=== PATIENT | male | born 1945 | race Caucasian/White ===

== ENCOUNTER 2023-06-29 09:53 | Emergency (ER) | payer OTHER ==
[~2023-06-29] VITALS: Ht 172.7 cm; Wt 73.4 kg
[2023-06-29] VITALS (9 sets, daily range): BP systolic 126–162; BP diastolic 66–84
[2023-06-29 11:18] LABS: BASO% 0.3 % (0-3); EOS% 0.7 % (0-8); HEMATOCRIT 49.9 % (39.0-50.0); HEMOGLOBIN 17.6 g/dl (14.0-18.0); IMMATURE GRANULOCYTES 0.8 % (0.0-5.0); LYMPH% 13.9 % (15-41); MEAN CELL VOLUME 92.4 fL CALC (80.0-100.0); MEAN CORPUSCULAR HGB 32.6 pG CALC (26.0-32.0); MEAN CORPUSCULAR HGB CONC 35.3 g/dL CAL (32.0-36.0); MONO% 7.6 % (2-13); NEUT# 5.52 thou/uL (1.82-7.42); NEUT% 76.7 % (42-76); RED BLOOD COUNT 5.4 mill/uL (4.70-6.10); RED CELL DISTRI WIDTH 11.6 % (11.5-15.5)
[2023-06-29 11:30] LABS: D-DIMER 0.23 mg/L (0.19-0.60)
[2023-06-29 11:31] LABS: ALBUMIN 4.1 g/dL (3.2-5.0); ALKALINE PHOSPHATASE 71 u/l (38-126); BUN 15 mg/dL (8-23); BUN/CREATININE RATIO 18 (12-20 (CALC)); CARBON DIOXIDE 23 mmol/l (22-30); CHLORIDE 102 mmol/l (95-108); CREATININE 0.8 mg/dL (0.7-1.3); GFR FOR AFR.AMER. > 60 ML/MIN (>=60 (CALC)); GFR OTHER RACES > 60 ML/MIN (>=60 (CALC)); POTASSIUM 4.4 mmol/l (3.5-5.1); SGOT/AST 37 u/l (19-48); TOTAL PROTEIN 6.3 g/dL (6.3-8.2)
[2023-06-29 11:32] LABS: INTERNATIONAL NORMALIZED RATIO 1.1 RATIO (0.7-1.3); PROTHROMBIN TIME 10.4 SECONDS (9.0-12.5)
[2023-06-29 11:44] LABS: ANION GAP 13 (6-22 (CALC)); SODIUM 134 mmol/l (137-146)
[2023-06-29] MEDS ORDERED: ZOFRAN4 MG/TAB PO (12:02)
[2023-06-29] MEDS ORDERED: MECLIZINE 2525 MG PO (12:02)
[2023-06-29 13:20] LABS: URINE BILIRUBIN - DIPSTICK Negative (NEGATIVE); URINE BLOOD DIPSTICK Negative (NEGATIVE); URINE COLOR Yellow; URINE GLUCOSE - DIPSTICK >=1000 mg/dL (NEGATIVE); URINE KETONE 40 mg/dL (NEGATIVE); URINE LEUK ESTERASE Negative (NEGATIVE); URINE NITRITE - DIPSTICK Negative (Negative); URINE PROTEIN - DIPSTICK Negative (NEG-TRACE); URINE SPECIFIC GRAVITY 1.015; URINE UROBILINOGEN - DIPSTICK 0.2 E.U./dL (0.2)
== END 2023-06-29 14:19 | disposition home or self-care (01) | DRG 195 ==
LOC: ED 09:53
PROVIDERS: Family Medicine
DX: J10.1 Influenza due to other identified influenza virus with other respiratory manifestations (principal); I10 Essential (primary) hypertension; E11.9 Type 2 diabetes mellitus without complications; F17.200 Nicotine dependence, unspecified, uncomplicated; Z95.1 Presence of aortocoronary bypass graft; Z85.46 Personal history of malignant neoplasm of prostate; Z20.822 Contact with and (suspected) exposure to COVID-19

== ENCOUNTER 2024-07-07 09:26 | Emergency (ER) | payer MEDICARE ==
[~2024-07-07] VITALS: Ht 172.7 cm; Wt 72.5 kg
[~2024-07-07 09:26] MED LIST: MECLIZINE 2525 MG PO; ZOFRAN4 MG/TAB PO
[2024-07-07 09:33] VITALS: BP 135/81
[2024-07-07 09:45] VITALS: BP 136/74
[2024-07-07 10:02] LABS: BASO% 0.7 % (0-3); EOS% 2.9 % (0-8); HEMATOCRIT 44.9 % (39.0-50.0); IMMATURE GRANULOCYTES 0.2 % (0.0-5.0); LYMPH% 20.2 % (15-41); MEAN CELL VOLUME 91.6 fL CALC (80.0-100.0); MEAN CORPUSCULAR HGB 31.4 pG CALC (26.0-32.0); MEAN CORPUSCULAR HGB CONC 34.3 g/dL CAL (32.0-36.0); MONO% 11.2 % (2-13); NEUT# 5.49 thou/uL (1.82-7.42); NEUT% 64.8 % (42-76); RED BLOOD COUNT 4.9 mill/uL (4.70-6.10); RED CELL DISTRI WIDTH 12.2 % (11.5-15.5)
[2024-07-07 10:03] LABS: HEMOGLOBIN 15.4 g/dl (14.0-18.0)
[2024-07-07 10:23] LABS: ALBUMIN 4.1 g/dL (3.2-5.0); ALKALINE PHOSPHATASE 61 u/l (38-126); ANION GAP 8 (6-22 (CALC)); BILIRUBIN, TOTAL 1.2 mg/dL (0.2-1.3); BUN 16 mg/dL (8-23); BUN/CREATININE RATIO 20 (12-20 (CALC)); CARBON DIOXIDE 27 mmol/l (22-30); CHLORIDE 103 mmol/l (95-108); CREATININE 0.8 mg/dL (0.7-1.3); ESTIMATED GFR 91 ML/MIN (>=90 (CALC)); POTASSIUM 4.1 mmol/l (3.5-5.1); SGOT/AST 25 u/l (19-48); SODIUM 134 mmol/l (137-146); TOTAL PROTEIN 6.8 g/dL (6.3-8.2)
[2024-07-07] MEDS ORDERED: LEVOFLOXACIN750 MG PO (10:49)
[2024-07-07 10:58] VITALS: BP 136/74
== END 2024-07-07 11:00 | disposition home or self-care (01) ==
LOC: ED 09:26
PROVIDERS: Family Medicine
DX: J06.9 Acute upper respiratory infection, unspecified (principal); I10 Essential (primary) hypertension; E11.9 Type 2 diabetes mellitus without complications; Z20.822 Contact with and (suspected) exposure to COVID-19

== ENCOUNTER 2024-07-14 17:12 | Observation (INO) | payer MEDICARE ==
[~2024-07-14] VITALS: Ht 172.7 cm; Wt 71.4 kg
[2024-07-14] VITALS (8 sets, daily range): BP systolic 135–156; BP diastolic 53–79
[~2024-07-14 17:12] MED LIST changes: +LEVOFLOXACIN750 MG PO
--- NOTE | 2024-07-14 17:33 | NUR ---
PT WALKED BACK TO ER ROOM 14 WITH A STEADY GAIT, FAMILY AT SIDE
[2024-07-14] MEDS ORDERED: SODIUM CHLORIDE 0.9% 250 ML IV ONE (17:50)
[2024-07-14] MEDS ORDERED: SODIUM CHLORIDE 0.9% 1,000 ML IV ONE ×2 (17:50)
[2024-07-14 18:04] LABS: BASO% 0.2 % (0-3); EOS% 1.3 % (0-8); HEMATOCRIT 48.1 % (39.0-50.0); HEMOGLOBIN 16.3 g/dl (14.0-18.0); IMMATURE GRANULOCYTES 0.3 % (0.0-5.0); LYMPH% 6.1 % (15-41); MEAN CELL VOLUME 92.3 fL CALC (80.0-100.0); MEAN CORPUSCULAR HGB 31.3 pG CALC (26.0-32.0); MEAN CORPUSCULAR HGB CONC 33.9 g/dL CAL (32.0-36.0); MONO% 8.6 % (2-13); NEUT# 9.25 thou/uL (1.82-7.42); NEUT% 83.5 % (42-76); RED BLOOD COUNT 5.21 mill/uL (4.70-6.10); RED CELL DISTRI WIDTH 12.4 % (11.5-15.5)
[2024-07-14 18:21] LABS: ALBUMIN 4.2 g/dL (3.2-5.0); BILIRUBIN, TOTAL 0.9 mg/dL (0.2-1.3); POTASSIUM 4.4 mmol/l (3.5-5.1); TOTAL PROTEIN 6.6 g/dL (6.3-8.2)
[2024-07-14 18:25] LABS: CREATININE 0.9 mg/dL (0.7-1.3)
[2024-07-14 18:50] LABS: URINE BILIRUBIN - DIPSTICK Negative (NEGATIVE); URINE BLOOD DIPSTICK Trace-intact (NEGATIVE); URINE COLOR Yellow; URINE GLUCOSE - DIPSTICK >=1000 mg/dL (NEGATIVE); URINE KETONE 40 mg/dL (NEGATIVE); URINE LEUK ESTERASE Negative (NEGATIVE); URINE NITRITE - DIPSTICK Negative (Negative); URINE PH 6.5 (4.5-8.0); URINE PROTEIN - DIPSTICK Negative (NEG-TRACE); URINE UROBILINOGEN - DIPSTICK 0.2 E.U./dL (0.2)
[2024-07-14] MEDS ORDERED: LOPRESSOR25 M1 PO (19:12)
[2024-07-14] MEDS ORDERED: LOSARTAN POTAS100 MG PO (19:12)
[2024-07-14] MEDS ORDERED: AMLODIPINE BESYL5 MG PO (19:13)
[2024-07-14] MEDS ORDERED: JARDIANCE10 MG (19:14)
[2024-07-14] MEDS ORDERED: ROSUVASTATIN CAL5 MG (19:14)
[2024-07-14] MEDS ORDERED: METFORMIN HCL500 M1 PO (19:15)
[2024-07-14] MEDS ORDERED: ASPIRIN LOW81 M1 PO (19:18)
--- NOTE | 2024-07-14 19:19 | NUR ---
TRANSITION OF CARE REPORT TO GILDA HERNANDEZ
[2024-07-14] MEDS ORDERED: ACETAMINOPHEN 325 MG/TAB PO PRN (19:55)
[2024-07-14] MEDS ORDERED: SODIUM CHLORIDE 0.9% 1,000 ML IV PRN (19:55)
[2024-07-14] MEDS ORDERED: MAGNESIUM HYDROXIDE 30 ML UDC PO PRN (19:55)
--- NOTE | 2024-07-14 20:01 | NUR ---
REPORT GIVEN TO NATANAEL HERNANDEZ. PATIENT IS CALM IN ROOM, A+OX4. SPEECH CLEAR, RESPIRATIONS EVEN AND UNLABORED. RN TO TRANSPORT PATIENT TO ROOM.
--- NOTE | 2024-07-14 20:10 | NUR ---
PT ARRIVED TO UNIT VIA STRETCHER NO DISTRESS NOTED. PT ABLE TO AMBULATE INDEPENDENTLY TO BED WITHOUT ANY ISSUES. CALL LIGHT WITHIN REACH. PT STATED UNDERSTANDING OF HOW TO USE IT.
[2024-07-14] MEDS ORDERED: ENOXAPARIN SODIUM 40 MG/0.4 ML SYR SC SCH (21:00)
[2024-07-14] MEDS ORDERED: METOPROLOL TARTRATE 25 MG/TAB PO SCH (21:00)
--- NOTE | 2024-07-14 21:00 | NUR ---
PT RESTING NO PAIN REPORTED AT THIS TIME. ASSESSMENT AND ADMISSION DONE. VS WNL ON RA TEMP SLIGHTLY ELEVATED LUNGDS CLEAR. BS ACTIVE LAST BM TODAY. PT STATED HAVING URINARY INCONTINENCE THAT STARTED TODAY BUT AT THIS TIME HE IS USING URINAL WITHOUT ANY ISSUES. SKIN INTACT NO EDEMA NOTED. CALL LIGHT WITHIN REACH. PLAN OF CARE ONGOING.
--- NOTE | 2024-07-14 23:05 | NUR ---
REPORT RECEIVED FROM NATANAEL HERNANDEZ. PT RESTING IN BED LYING ON LEFT SIDE. PT DOES NOT OFFER ANY COMPLAINTS AT THIS TIME. PT IS A&O X3, AND ABLE TO MAKE NEEDS KNOWN. ANJALI MCCALLUM REFUSED AT THIS TIME. TEMPERATURE WNL. PT STATES THAT HIS LAST BM WAS ON 07-14-24, BOWEL SOUNDS ACTIVE X4 QUADRANTS, ABDOMEN IS SOFT. IV CLEAN AND INTACT, FLUSHING WELL. PERIPHERAL PULSES STRONG. PT DENIES ANY PAIN. NO N/V/D NOTED. PT EDUCATED ON POC AND MEDICATION SCHEDULE. CALL LIGHT IN REACH, AND SAFETY PRECAUTIONS IN PLACE. PT IS ON ROOM AIR. LUNG SOUNDS CLEAR UPON AUSCULTATION.
[2024-07-15] MEDS ORDERED: PIPERACILLIN Sodium-Tazobactam 3.375 GM in SODIUM CHLORIDE 0.9% 100 ML IV SCH
[2024-07-15 03:23] VITALS: BP 138/63
--- NOTE | 2024-07-15 04:05 | NUR ---
PT RESTING IN BED WITH EYES CLOSED. RESPIRATIONS ARE EVEN AND UNLABORED. PT IS EASILY AROUSABLE. INFUSION GOING PER ORDERS. NO S&S OF DISTRESS NOTED. PT DOES NOT OFFER ANY COMPLAINTS AT THIS TIME. CALL LIGHT IN REACH, AND SAFETY PRECAUTIONS IN PLACE.
[2024-07-15 05:01] VITALS: BP 138/63
[2024-07-15 07:33] VITALS: BP 127/60
[2024-07-15 07:53] LABS: BASO% 0.1 % (0-3); EOS% 1.3 % (0-8); HEMATOCRIT 44.1 % (39.0-50.0); HEMOGLOBIN 15.2 g/dl (14.0-18.0); IMMATURE GRANULOCYTES 0.4 % (0.0-5.0); LYMPH% 4.2 % (15-41); MEAN CELL VOLUME 92.6 fL CALC (80.0-100.0); MEAN CORPUSCULAR HGB 31.9 pG CALC (26.0-32.0); MEAN CORPUSCULAR HGB CONC 34.5 g/dL CAL (32.0-36.0); MONO% 7.2 % (2-13); NEUT# 9.72 thou/uL (1.82-7.42); NEUT% 86.8 % (42-76); RED BLOOD COUNT 4.76 mill/uL (4.70-6.10); RED CELL DISTRI WIDTH 12.2 % (11.5-15.5)
--- NOTE | 2024-07-15 08:00 | NUR ---
PT SITTING UP IN THE BED WATCHING TV, ALERT AND ORIENTED X3, PT DENIES ANY PAIN AT THIS TIME, PUPILS PERRLS, RESP. EVEN AND UNLABORED, NORMAL S1 S2 HEART SOUNDS, ABD DISTENDED AND SOFT WITH ACTIVE BOWEL SOUNDS, STRONG RADIAL AND PEDAL PULSES, 20G RAC IV WITH FLUIDS INFUSING AT PRESCRIBED RATE, SAFETY MEASURES REINFORCED, CALL [place] WITHIN REACH
[2024-07-15 08:14] LABS: CREATININE 0.8 mg/dL (0.7-1.3); POTASSIUM 4.2 mmol/l (3.5-5.1); TOTAL PROTEIN 5.4 g/dL (6.3-8.2)
[2024-07-15 08:23] LABS: ALBUMIN 3.2 g/dL (3.2-5.0)
[2024-07-15] MEDS ORDERED: ASPIRIN 81 MG/TAB PO SCH (09:00)
[2024-07-15] MEDS ORDERED: LOSARTAN Potassium 50 MG/TAB PO SCH (09:00)
[2024-07-15] MEDS ORDERED: amLODIPine BESYLATE 5 MG/TAB PO SCH (09:00)
--- NOTE | 2024-07-15 09:30 | NUR ---
PT REMOVED IV ON HIS OWN
[2024-07-15] MEDS ORDERED: DOXYCYCLINE100 MG PO (10:06)
[2024-07-15 10:35] VITALS: BP 120/61
--- NOTE | 2024-07-15 11:14 | NUR ---
Discharge instructions given. Patient verbalizes understanding of same. Discharged in stable condition via Wheelchair to Home with friend. All belongings sent with pt.
[2024-07-15 11:18] VITALS: BP 120/61
== END 2024-07-15 11:12 | disposition home or self-care (01) ==
LOC: ED 17:12 → ED-I 18:50 → ED 19:07 → MS2 19:08
PROVIDERS: Nurse Practitioner; Nurse Practitioner Family; ADMIT Internal Medicine; ATTEND Internal Medicine
DX: R53.1 Weakness (principal); R50.9 Fever, unspecified; R32 Unspecified urinary incontinence; I10 Essential (primary) hypertension; E11.9 Type 2 diabetes mellitus without complications; I25.10 Atherosclerotic heart disease of native coronary artery without angina pectoris; Z85.46 Personal history of malignant neoplasm of prostate; Z95.1 Presence of aortocoronary bypass graft; Z79.84 Long term (current) use of oral hypoglycemic drugs; Z20.822 Contact with and (suspected) exposure to COVID-19
CPT/HCPCS: J1650